=== PATIENT | female | born 1975 ===

== ENCOUNTER 2017-11-10 07:15 | Day surgery (SDC) | payer OTHER ==
[~2017-11-10 07:15] MED LIST: AMBIEN5 MG PO; CLONAZEPAM0.5 MG PO; EFFEXOR XR75 MG PO
[2017-11-10] MEDS ORDERED: MACROBID 100 M100 MG PO (12:12)
[2017-11-10] MEDS ORDERED: ULTRACET PO (12:14)
== END 2017-11-10 16:25 | disposition home or self-care (01) ==
LOC: CIR.AMB 07:15
DX: N39.3 Stress incontinence (female) (male) (principal)
CPT/HCPCS: 57288; C1771